=== PATIENT | male | born 1945 | race Caucasian/White ===

== ENCOUNTER → 2018-01-06 14:15 | Outpatient (REF) | payer MEDICARE, OTHER, SELFPAY ==
[2018-01-06 19:49] LABS: Anion Gap 9.2 mmol/L (3-11); BUN 27 mg/dL (7-18); CO2 25.8 mmol/L (21.0-32.0); CREATININE 1.42 mg/dL (0.70-1.30); Calcium 8.5 mg/dL (8.5-10.1); Chloride 104 mmol/L (98-107); Estimated GFR 48.73 (mL/min/1.73m2); Glucose 121 mg/dL (70-100); Potassium 4.5 mmol/L (3.5-5.1); Sodium 139 mmol/L (136-145)
== END ==
LOC: NCHCN 14:15
PROVIDERS: PCP Family Medicine; Visit Provider Family Medicine
DX: I50.20 Unspecified systolic (congestive) heart failure (principal)
CPT/HCPCS: 80048

== ENCOUNTER 2018-01-15 11:34 | Outpatient (RCR) | payer MEDICARE, OTHER, SELFPAY | END 2018-01-15 23:59 | disposition home or self-care (01) | LOC: CR 11:34 | PROVIDERS: PCP Family Medicine; Visit Provider Family Medicine | DX: I25.2 Old myocardial infarction (principal); Z51.89 Encounter for other specified aftercare | CPT/HCPCS: S9472 ==

== ENCOUNTER 2018-02-12 13:20 | Outpatient (RCR) | payer MEDICARE, OTHER, SELFPAY | END 2018-02-14 23:59 | disposition home or self-care (01) | LOC: CR 13:20 | PROVIDERS: Visit Provider Family Medicine | DX: I25.2 Old myocardial infarction (principal); Z51.89 Encounter for other specified aftercare | CPT/HCPCS: S9472 ==

== ENCOUNTER 2018-03-10 08:00 | Outpatient (RCR) | payer MEDICARE, OTHER, SELFPAY | END 2018-03-17 23:59 | disposition home or self-care (01) | LOC: CR 08:00 | PROVIDERS: PCP Family Medicine; Visit Provider Family Medicine | DX: I25.2 Old myocardial infarction (principal); Z51.89 Encounter for other specified aftercare | CPT/HCPCS: S9472 ==

== ENCOUNTER 2018-10-01 02:17 | Outpatient (CLI) | payer MEDICARE, OTHER, SELFPAY ==
[2018-10-01 09:11] LABS: Anion Gap 9.6 mmol/L (3-11); BUN 27 mg/dL (7-18); CO2 26.4 mmol/L (21.0-32.0); CREATININE 1.23 mg/dL (0.70-1.30); Calcium 8.9 mg/dL (8.5-10.1); Chloride 105 mmol/L (98-107); Cholesterol 96 mg/dL (50-200); Estimated GFR 57.37 (mL/min/1.73m2); Glucose 97 mg/dL (70-100); HDL Cholesterol 38 mg/dL (40-60); LDL CHOLESTEROL 48 mg/dL (<100); Potassium 4.7 mmol/L (3.5-5.1); Sodium 141 mmol/L (136-145); Triglyceride 42 mg/dL (30-150)
== END 2018-10-01 02:37 ==
PROVIDERS: PCP Family Medicine; Visit Provider Family Medicine
DX: I25.10 Atherosclerotic heart disease of native coronary artery without angina pectoris (principal); E78.5 Hyperlipidemia, unspecified
CPT/HCPCS: 36415; 80048; 80061; 83721

== ENCOUNTER 2019-04-04 16:07 | Outpatient (REF) | payer MEDICARE, OTHER, SELFPAY ==
[2019-04-04 18:44] LABS: HCT 40.1 % (40.0-50.0); HGB 13.9 g/dL (13.5-17.5); Mean Corp. HGB Concentration 34.7 g/dL (32.0-36.0); Mean Corpuscular Hemoglobin 32.9 pg (27.0-33.0); Mean Corpuscular Volume 94.8 fL (80-95); Mean Platelet Volume 8.6 fL (8.0-11.0); Platelet Count 211 x1000/uL (130-400); RBC 4.23 m/cumm (4.50-6.00); RBC Distribution Width 13.2 % (11.8-14.1); White Blood Cell Count 6.42 k/cumm (4.4-10.8)
[2019-04-04 19:22] LABS: ALT 37 U/L (16-63); AST 23 U/L (15-37); Albumin 4.2 g/dL (3.4-5.0); Alkaline Phosphatase 82 U/L (46-116); Anion Gap 11.2 mmol/L (3-11); BUN 34 mg/dL (7-18); Bilirubin, Total 0.6 mg/dL (0.2-1.0); CO2 24.8 mmol/L (21.0-32.0); CREATININE 1.18 mg/dL (0.70-1.30); Calcium 8.7 mg/dL (8.5-10.1); Chloride 105 mmol/L (98-107); Ferritin 227 ng/mL (8-388); Folate 10.5 ng/mL (8.6-20.0); Glucose 98 mg/dL (70-100); Potassium 4.6 mmol/L (3.5-5.1); Sodium 141 mmol/L (136-145); TSH (W/Ref FT4) 2.17 uIU/mL (0.36-3.74); Total Protein 6.9 g/dL (6.4-8.2); Vitamin B12 306 pg/mL (193-986)
[2019-04-04 19:43] LABS: Creatine Kinase 167 U/L (39-308)
[2019-04-06 15:23] LABS: IgA 241 mg/dL (85-499); Interpretation (See Note); Tissue Transglutaminase IgA <1.2 U/mL (<4.0)
[2019-04-11 15:36] LABS: Methylmalonic Acid 0.38 nmol/mL (<=0.40)
== END 2019-04-04 16:27 ==
LOC: NCHCN 16:07
PROVIDERS: PCP Family Medicine; Visit Provider Family Medicine
DX: R63.4 Abnormal weight loss (principal); R53.83 Other fatigue; M62.81 Muscle weakness (generalized); R79.89 Other specified abnormal findings of blood chemistry; E53.8 Deficiency of other specified B group vitamins
CPT/HCPCS: 80053; 80186; 82550; 82784; 83516; 85027; 82607; 82728; 82746; 84443

== ENCOUNTER 2019-07-01 12:40 | Outpatient (REF) | payer MEDICARE, OTHER, SELFPAY ==
[2019-07-01 13:43] LABS: Vitamin B12 631 pg/mL (193-986)
[2019-07-05 14:50] LABS: Methylmalonic Acid 0.25 nmol/mL (<=0.40)
== END 2019-07-01 13:00 ==
LOC: NCHCN 12:40
PROVIDERS: PCP Family Medicine; Visit Provider Family Medicine
DX: E53.8 Deficiency of other specified B group vitamins (principal); R53.83 Other fatigue; M62.81 Muscle weakness (generalized)
CPT/HCPCS: 80186; 82607